=== PATIENT | female | born 1930 ===

== ENCOUNTER 2019-01-14 11:30 | Inpatient (IN) | payer OTHER ==
[~2019-01-14] VITALS: Ht 152.4 cm; Wt 52.6 kg
[2019-01-14] MEDS ORDERED: POTASSIUM CHLO20 MEQ PO (12:56)
[2019-01-14] MEDS ORDERED: OMEPRAZOLE40 MG PO (12:56)
[2019-01-14] MEDS ORDERED: ELIQUIS2.5 MG PO (12:56)
[2019-01-14] MEDS ORDERED: LEVO-T50 MCG PO (12:56)
[2019-01-14] MEDS ORDERED: METFORMIN HCL500 MG PO (12:57)
[2019-01-14] MEDS ORDERED: PREDNISOLONE SO10 MG PO (12:57)
[2019-01-14] MEDS ORDERED: HYDROCHLOROTHIA25 MG PO (12:57)
[2019-01-14] MEDS ORDERED: NORVASC5 MG PO (12:57)
[2019-01-14] MEDS ORDERED: FOSAMAX70 MG PO (12:58)
[2019-01-14] MEDS ORDERED: MAXIMUM D310000 UNIT PO (12:58)
[2019-01-14] MEDS ORDERED: LIPITOR20 MG PO (12:58)
== END 2019-01-21 16:19 | disposition home or self-care (01) | DRG 349 ==
LOC: O/R 11:30 → SURH 01-20 06:26
PROVIDERS: ADMIT Colon & Rectal Surgery
PROC: 0DUR07Z Supplement Anal Sphincter with Autologous Tissue Substitute, Open Approach (ICD-10-PCS; 2019-01-20)
PROC: 3E0F7GC Introduction of Other Therapeutic Substance into Respiratory Tract, Via Natural or Artificial Opening (ICD-10-PCS; 2019-01-20)
PROC: 0DBP7ZZ Excision of Rectum, Via Natural or Artificial Opening (ICD-10-PCS; principal; 2019-01-20 15:15)
DX: K62.3 Rectal prolapse (principal); R15.9 Full incontinence of feces; I11.9 Hypertensive heart disease without heart failure; E11.9 Type 2 diabetes mellitus without complications; E03.8 Other specified hypothyroidism; E78.00 Pure hypercholesterolemia, unspecified; M31.6 Other giant cell arteritis; J45.20 Mild intermittent asthma, uncomplicated